=== PATIENT | female | born 1935 | race Caucasian/White ===

== ENCOUNTER 2023-07-08 09:32 | Outpatient (CLI) | payer MEDICARE | END 2023-07-08 09:33 | disposition home or self-care (01) | LOC: SCSRAD 09:32 | PROVIDERS: ATTEND Otolaryngology Plastic Surgery within the Head & Neck | DX: C02.9 Malignant neoplasm of tongue, unspecified (principal); J84.10 Pulmonary fibrosis, unspecified; M89.8X8 Other specified disorders of bone, other site; M25.78 Osteophyte, vertebrae; M43.8X5 Other specified deforming dorsopathies, thoracolumbar region; Z95.2 Presence of prosthetic heart valve; Z98.890 Other specified postprocedural states | CPT/HCPCS: 71046 ==

== ENCOUNTER 2023-07-08 11:11 | Outpatient (CLI) | payer MEDICARE ==
[~2023-07-08 11:11] MED LIST: Iopamidol 370 76% 100 ML VIAL ONE
== END 2023-07-08 11:12 | disposition home or self-care (01) ==
LOC: BICCT 11:11
PROVIDERS: ATTEND Otolaryngology Plastic Surgery within the Head & Neck
DX: C02.9 Malignant neoplasm of tongue, unspecified (principal); J38.7 Other diseases of larynx; R91.8 Other nonspecific abnormal finding of lung field; R59.0 Localized enlarged lymph nodes; Z98.890 Other specified postprocedural states
CPT/HCPCS: 70491; 82565; Q9967

== ENCOUNTER 2023-08-18 10:47 | Outpatient (CLI) | payer MEDICARE | END 2023-08-18 10:48 | disposition home or self-care (01) | LOC: RAD 10:47 | PROVIDERS: ATTEND Radiology Radiation Oncology | DX: R13.19 Other dysphagia (principal); C02.9 Malignant neoplasm of tongue, unspecified | CPT/HCPCS: 74230 ==